=== PATIENT | male | born 1990 | race Caucasian/White ===

== ENCOUNTER 2021-04-27 13:47 | Emergency (ER) | payer OTHER ==
[~2021-04-27] VITALS: Ht 188 cm; Wt 77.6 kg
[2021-04-27 13:47] VITALS: BP_SYST 132
--- NOTE | 2021-04-27 13:47 | NUR ---
BROUGHT IN BY [facility] AND PLACED IN [place]ALLWAY UNTIL ER BED AVAILABLE. TRIAGED AND AWAITING BED.
--- NOTE | 2021-04-27 14:48 | NUR ---
PT ELOPED FROM ER
== END 2021-04-27 14:48 | disposition left against medical advice (07) ==
LOC: SED 13:47
DX: S42.022A Displaced fracture of shaft of left clavicle, initial encounter for closed fracture (principal); V23.4XXA Motorcycle driver injured in collision with car, pick-up truck or van in traffic accident, initial encounter; Y93.89 Activity, other specified; Y92.89 Other specified places as the place of occurrence of the external cause; Y99.8 Other external cause status
CPT/HCPCS: 73030; 99283

== ENCOUNTER 2023-02-19 18:39 | Emergency (ER) | payer SELFPAY ==
[~2023-02-19] VITALS: Ht 177.8 cm; Wt 72.1 kg
[2023-02-19 18:43] VITALS: BP_SYST 135
[2023-02-19] MEDS ORDERED: NACL 0.9% 1,000 ML IV ONE (18:45)
[2023-02-19] MEDS ORDERED: ONDANSETRON HCL 4 MG/2 ML VIAL IVP ONE ×2 (18:45→20:45)
[2023-02-19] MEDS ORDERED: FOLIC ACID 1 MG, THIAMINE HCL 100 MG, MAGNESIUM SULFATE 1 GM, MVI 10 ML in NACL 0.9% 1,... IV ONE (19:00)
[2023-02-19 19:38] LABS: HEMATOCRIT 40.1 % (36-54); HEMOGLOBIN 13.6 g/dL (14.0-18.0); MEAN CORPUSCULAR HEMOGLOBIN 29 pg (27-31); MEAN CORPUSCULAR HGB CONC 34 % (32-36); MEAN CORPUSCULAR VOLUME 86 fL (79.0-98.0); PLATELET COUNT (AUTO) 203 K/uL (130-430); RED BLOOD CELL COUNT(AUTO) 4.65 MIL/uL (4.2-6.2); RED CELL DISTRIBUTION WIDTH 13.9 % (9.0-15.0); WHITE BLOOD COUNT (AUTO) 6.2 K/uL (4.8-10.8)
[2023-02-19 19:45] LABS: CALCIUM 8.1 mg/dL (8.4-11.0); CREATININE 0.92 mg/dL (0.55-1.30); PROTHROMBIN TIME 10.6 SECS (9.5-12.5)
[2023-02-19 19:51] LABS: ALBUMIN 3.8 g/dL (3.4-4.8); TOTAL BILIRUBIN 0.3 mg/dL (0.0-1.0)
[2023-02-19 20:29] LABS: BAND % (MANUAL) 1 % (0-6); BASOPHILS % (MANUAL) 0 % (0-2); EOSINOPHILS % (MANUAL) 2 % (0-7); LYMPHOCYTES % (MANUAL) 56 % (20-46); MONOCYTES % (MANUAL) 6 % (0-11)
[2023-02-19] MEDS ORDERED: HALOPERIDOL LACTATE 5 MG/ML VIAL IM ONE (20:45)
[2023-02-19] MEDS ORDERED: DIPHENHYDRAMINE INJ 50 MG/ML VIAL IVP ONE (20:45)
[2023-02-19] MEDS ORDERED: THIAMINE HCL 100 MG, MAGNESIUM SULFATE 1 GM in NS 100 ML IV ONE (21:00)
[2023-02-19] MEDS ORDERED: FOLIC ACID 1 MG, MVI 10 ML in NACL 0.9% 1,000 ML IV ONE (21:00)
== END 2023-02-19 20:42 | disposition left against medical advice (07) ==
LOC: SED 18:39
DX: F10.129 Alcohol abuse with intoxication, unspecified (principal); T51.91XA Toxic effect of unspecified alcohol, accidental (unintentional), initial encounter; R41.82 Altered mental status, unspecified; R11.10 Vomiting, unspecified; Z79.899 Other long term (current) drug therapy; Y90.6 Blood alcohol level of 120-199 mg/100 ml; Y92.89 Other specified places as the place of occurrence of the external cause
CPT/HCPCS: 99284; 96374; 96361; 85027; 80053; 83880; 83735; 85007; 85610; 36415; 93005; G0482; J3475; J2405; J3411; J7030; J3490